=== PATIENT | female | born 1940 | race Caucasian/White ===

== ENCOUNTER 2018-08-09 05:08 | Day surgery (SDC) | payer OTHER, BC ==
[2018-08-05 17:55] VITALS: BMI 21.6
[2018-08-09] MEDS ORDERED: PROPOFOL 20 ML ONE ×2 (10:30)
[2018-08-09] MEDS ORDERED: MIDAZOLAM HCL 2 MG/2 ML SINGLE DOSE VIAL ONE (10:30)
[2018-08-09] MEDS ORDERED: oxyCODONE HCL 5 MG TABLET PO PRN ×2 (10:44→12:27)
[2018-08-09] MEDS ORDERED: ONDANSETRON 4 MG/2 ML VIAL IVPUSH PRN ×2 (10:44→12:27)
[2018-08-09] MEDS ORDERED: LACTATED RINGERS SOLUTION 1,000 ML IV SCH (10:45)
--- NOTE | 2018-08-09 10:54 | HP ---
History & Physical Update - Physical Physical: No Change - Assessment Assessment: No Change - Plan Plan: No Change (H& P reviwed , no cahnges , for hysterocopy)
[2018-08-09] MEDS ORDERED: IBUPROFEN 800 MG/8 ML IJ IVPB PRN (12:27)
[2018-08-09] MEDS ORDERED: IBUPROFEN 600 MG TABLET (FP) PO PRN (12:27)
[2018-08-09] MEDS ORDERED: ELECTROLYTE-148 SOLN 1,000 ML IV SCH (12:30)
[2018-08-09 12:32] VITALS: TEMP 97.3
[2018-08-09 13:40] VITALS: BP 153/71; PULSE 63
--- NOTE | 2018-08-10 10:54 | OP ---
DATE OF OPERATION: 08/09/2018 PREOPERATIVE DIAGNOSIS: Postmenopausal bleeding, rule out endometrial polyp. POSTOPERATIVE DIAGNOSIS: Postmenopausal bleeding, rule out endometrial polyp, submucous fibroid uterus, and atrophic endometrium. SURGEON: Bhavesh Lewis MD ANESTHESIA: General. ESTIMATED BLOOD LOSS: 25 mL. DESCRIPTION OF PROCEDURE: The patient was taken to the operating room, had adequate general anesthesia in dorsal lithotomy position. Examination under anesthesia revealed external genitalia had a vulvectomy. Vagina was normal, no gross lesion. Uterus was normal-sized. Adnexa, no masses were palpable. Then, with a weighted speculum in the vagina, anterior lip of the cervix was grasped with a single-tooth tenaculum. Uterine cavity was sounded to 5 cm. Then, cervix was slightly dilated, and hysteroscope was introduced. Visualization of the endocervical canal appeared to be normal. Endometrium appeared atrophic. There were 2 small submucous myomas seen. Both cornual regions of the uterus were visualized. No other abnormality was found. Endometrium was atrophic, and no other lesion was found. Patient tolerated the procedure well, left the OR in good condition. BHAVESH LEWIS M.D. [id number]
--- NOTE | 2018-08-10 16:44 | PATH ---
Surgical Pathology Report Patient Name: SADAF ROSS [facility]. Rec. #: [id number] /Age/Gender: 1940 (Age: 78) / F Account: [id number] Location: [facility] SUR[facility] Taken: 08/09/2018 Received: 08/09/2018 Reported: 08/10/2018 Physicians: Bhavesh Lewis M.D. Specimen(s) Received ENDOMETRIAL CURETTINGS Clinical History Postmenopausal bleeding, submucous leiomyoma of uterus Final Diagnosis ENDOMETRIAL CURETTINGS, DILATION AND CURETTAGE: FEW STRIPS OF ENDOMETRIAL GLANDS CONSISTENT WITH ATROPHIC ENDOMETRIUM, BENIGN CERVICAL SQUAMOUS MUCOSA, AND SCANT BENIGN ENDOCERVICAL GLANDS, ADMIXED WITH BLOOD AND MUCUS. Electronically Signed Luz [place] M.D. Gross Description Received in formalin labeled "endometrial curettings," is a 0.7 x 0.5 x 0.1 cm aggregate of anton red soft tissue fragments. The formalin is filtered and the specimen is entirely submitted in one cassette. /08/09/2018 [facility]08/09/2018
--- NOTE | 2018-08-16 13:39 | OP ---
DATE OF OPERATION: 08/09/2018 PREOPERATIVE DIAGNOSIS: Postmenopausal bleeding. PROCEDURE: Hysteroscopy, dilation and curettage. SURGEON: Bhavesh Lewis MD ANESTHESIA: General. ESTIMATED BLOOD LOSS: Minimal. FINDING: Two small submucous myomas. OPERATION: Patient was taken to operating room under adequate general anesthesia in dorsal lithotomy position. Examination under anesthesia revealed external genitalia with history of vulvectomy for Paget's disease, no evidence of Paget's. Vagina was atrophic. Cervix was clean, no lesion. Uterus normal size, anteverted. Adnexa, no masses were palpable. Then with a weighted speculum in the vagina, anterior lip of cervix was grasped with single-tooth tenaculum. Cervix was slightly dilated. Hysteroscope was introduced. Visualization of endocervical canal appeared to be normal. Endometrium was atrophic. Both cornual region was identified and tubal ostium was visualized. There were 2 small submucous myomas, one fundal and one in the lower uterine segment, approximately 1 cm each, but no other abnormality was found. Hysteroscope was withdrawn. Cervix was dilated. Endometrium was curetted. A small amount of tissue was obtained. Patient tolerated procedure well, left the OR in good condition. BHAVESH LEWIS M.D. [id number]
== END 2018-08-09 13:49 | disposition home or self-care (01) ==
LOC: JASU-SURG 05:08
PROVIDERS: ATTEND Obstetrics & Gynecology
PROC: 0UDB7ZX Extraction of Endometrium, Via Natural or Artificial Opening, Diagnostic (ICD-10-PCS; principal; 2018-08-09 10:30)
PROC: 0UJD8ZZ Inspection of Uterus and Cervix, Via Natural or Artificial Opening Endoscopic (ICD-10-PCS; 2018-08-09 10:30)
DX: N95.0 Postmenopausal bleeding (principal); D25.0 Submucous leiomyoma of uterus
CPT/HCPCS: 82962; 88305-TC; 94760

== ENCOUNTER 2018-12-07 08:41 | Day surgery (SDC) | payer OTHER, BC | END 2018-12-07 11:55 | disposition home or self-care (01) | LOC: FASU 08:41 ==

== ENCOUNTER → 2019-05-18 | Day surgery (SDC) | payer OTHER, BC ==
--- NOTE | 2019-05-22 10:56 | PATH ---
Surgical Pathology Report Patient Name: SADAF ROSS [facility]. Rec. #: [id number] /Age/Gender: 1940 (Age: 79) / F Account: [id number] Location: [facility] Taken: 05/18/2019 Received: 05/18/2019 Reported: 05/22/2019 Physicians: Ele Rivas M.D. Specimen(s) Received A: LEFT BREAST SPECIMEN - WITH CALCIFICATIONS B: LEFT BREAST SPECIMEN - WITHOUT CALCIFICATIONS Clinical History Nonpalpable lesion Mammographic findings: Microcalcification, suspicious Final Diagnosis A. LEFT BREAST, WITH CALCIFICATION, STEREOTACTIC NEEDLE CORE BIOPSY: SCLEROSED FIBROADENOMA WITH STROMAL CALCIFICATION. B. LEFT BREAST, WITHOUT CALCIFICATION, STEREOTACTIC NEEDLE CORE BIOPSY: SCLEROSED FIBROADENOMA, AND FIBROCYSTIC CHANGES INCLUDING STROMAL FIBROSIS AND DUCTAL DILATATION WITH RARE CALCIFICATION. Electronically Signed Casper Godwin M.D. Gross Description A. Received in formalin labeled "left breast with calcifications," are 5 anton-yellow, cylindrical portions of fibroadipose tissue ranging from 1.0-1.2 cm in length and averaging 0.5 cm in diameter. The specimens are submitted in toto in one cassette. B. Received in formalin labeled "left breast without calcifications," are 9 anton-yellow, cylindrical portions of fibroadipose tissue ranging from 0.6-1.5 cm in length and averaging 0.4 cm in diameter. The specimens are submitted in toto in 2 cassettes. Time to formalin fixation: 5 minutes Total formalin fixation time: Approximately 28 hours. 05/19/2019 [facility]05/19/2019
== END | disposition home or self-care (01) ==
LOC: FMAMMOTONE 12:54
PROVIDERS: ATTEND Surgery Surgical Oncology
PROC: 0HBU3ZX Excision of Left Breast, Percutaneous Approach, Diagnostic (ICD-10-PCS; principal; 2019-05-18)
DX: D24.2 Benign neoplasm of left breast (principal); N60.22 Fibroadenosis of left breast; N60.32 Fibrosclerosis of left breast; N64.89 Other specified disorders of breast; N63.20 Unspecified lump in the left breast, unspecified quadrant
CPT/HCPCS: 19081; 76098-TC-FY; 87899; 88305-TC; A4648

== ENCOUNTER 2019-05-31 08:07 | Day surgery (SDC) | payer OTHER, BC ==
[2019-05-25 10:44] VITALS: BMI 22.4
[2019-05-31] MEDS: PHENYLEPHRINE 2.5% OPHTH SOLN 15 ML BOTTLE ONE ×2 (08:50→08:55)
[2019-05-31] MEDS: CYCLOPENTOLATE 2% OPHTH SOLN 2 ML BOTTLE ONE ×3 (08:50→09:00)
[2019-05-31] MEDS: TROPICAMIDE 1% OPHTH SOLN 15 ML BOTTLE ONE ×3 (08:50→09:00)
[2019-05-31] MEDS: CIPROFLOXACIN 0.3% EYE DROPS 5 ML BOTTLE ONE ×3 (08:50→09:00)
[2019-05-31] MEDS ORDERED: PHENYLEPHRINE 2.5% OPHTH SOLN 15 ML BOTTLE OS ONE (09:00)
[2019-05-31] MEDS ORDERED: NEO/POLYMYX B SULF/DEXAMETH OPHTHALMIC 5ML BOTTLE ONE (09:56)
[2019-05-31] MEDS ORDERED: BSS (NA/CA/MG/K) BALANCED SALT SOLUTION OPHTH SOLN 15 ML BOTTLE ONE (09:56)
[2019-05-31] MEDS ORDERED: CARBACHOL 0.01% INTRA-OCULAR 1.5 ML VIAL ONE (09:56)
[2019-05-31] MEDS ORDERED: MIDAZOLAM HCL 2 MG/2 ML SINGLE DOSE VIAL ONE (10:10)
[2019-05-31 10:33] VITALS: TEMP 98.1
[2019-05-31 10:56] VITALS: BP 131/76; PULSE 76
[2019-05-31] MEDS ORDERED: ONDANSETRON 4 MG/2 ML VIAL IVPUSH PRN (14:40)
[2019-05-31] MEDS ORDERED: ACETAMINOPHEN 325 MG TABLET (FP) PO PRN (14:40)
[2019-05-31] MEDS ORDERED: LACTATED RINGERS SOLUTION 1,000 ML IV SCH (14:45)
--- NOTE | 2019-06-01 10:57 | OP ---
DATE OF OPERATION: 05/31/2019 OPERATIVE PROCEDURE: Lens Phacoemulsification with Posterior Chamber Intraocular Lens Placement Left Eye PREOPERATIVE DIAGNOSIS: Visually Significant Cataract of Left Eye POSTOPERATIVE DIAGNOSIS: Visually Significant Cataract of Left Eye SURGEON: Erlin Villagomez M.D. ANESTHESIA: MAC PROCEDURE: The patient was brought to the operating room and placed under monitored anesthesia care by Anesthesia. A drop of Tetracaine was then placed over the left eye. The patient was then prepped and draped in the usual sterile manner. A speculum was then placed over the left eye. The eye was then well irrigated with copious amounts of BSS (balanced salt solution). The operating microscope was then moved into position. A paracentesis was performed using a 15 degree blade. At this point 0.5 mL of 1% preservative-free lidocaine was injected into the anterior chamber. Amvisc plus was then injected into the anterior chamber. A clear corneal incision was then formed using a 2.2 mm keratome. A capsulorrhexis was then performed in a continuous circular fashion beginning with a cystotome, completed with an Utratas forceps. Hydrodissection was then performed using BSS on a cannula. The phaco probe was then introduced through the corneal wound and the cataract was removed using the phaco chop technique. Approximately 3 seconds of absolute phaco time was used. The remaining cortex was then removed using irrigation and aspiration with an I/A probe. The capsule was then filled with regular Amvisc and the capsule was noted to be intact. A previously selected foldable posterior chamber intraocular lens was then injected into the capsule through the corneal wound using a lens injector. It was then dialed into position using a Sinskey hook. The Amvisc was then removed using irrigation and aspiration. Miostat was then injected through the paracentesis to constrict the pupil. The paracentesis and corneal wound were then hydrated and noted to be water tight. A drop of Maxitrol was then placed over the eye. The speculum was removed and clear shield was taped over the eye. The patient tolerated the procedure well and there were no surgical complications. The patient was asked to follow up in my office the next day. ERLIN VILLAGOMEZ M.D. MARY [id number]
== END 2019-05-31 11:10 | disposition home or self-care (01) ==
LOC: FASU 08:07
PROVIDERS: ATTEND Ophthalmology
PROC: 08RK3JZ Replacement of Left Lens with Synthetic Substitute, Percutaneous Approach (ICD-10-PCS; principal; 2019-05-31 10:13)
DX: H26.8 Other specified cataract (principal)
CPT/HCPCS: 82962

== ENCOUNTER 2019-07-05 10:12 | Day surgery (SDC) | payer OTHER, BC ==
[2019-06-28 12:44] VITALS: BMI 22.4
[2019-07-05] MEDS: CIPROFLOXACIN 0.3% EYE DROPS 5 ML BOTTLE ONE ×3 (11:30→11:40)
[2019-07-05] MEDS: TROPICAMIDE 1% OPHTH SOLN 15 ML BOTTLE ONE ×3 (11:30→11:40)
[2019-07-05] MEDS: CYCLOPENTOLATE 2% OPHTH SOLN 2 ML BOTTLE ONE ×3 (11:30→11:40)
[2019-07-05] MEDS: PHENYLEPHRINE 2.5% OPHTH SOLN 15 ML BOTTLE ONE ×3 (11:30→11:40)
[2019-07-05 11:35] VITALS: PULSE 76
[2019-07-05] MEDS ORDERED: LIDOCAINE 1% P/F 10 MG/ML VIAL ONE (11:47)
[2019-07-05] MEDS ORDERED: BSS (NA/CA/MG/K) BALANCED SALT SOLUTION OPHTH SOLN 15 ML BOTTLE ONE (11:47)
[2019-07-05] MEDS ORDERED: TETRACAINE 0.5% OPHTH SOLN 2 ML BOTTLE ONE (11:47)
[2019-07-05] MEDS ORDERED: CARBACHOL 0.01% INTRA-OCULAR 1.5 ML VIAL ONE (11:48)
[2019-07-05] MEDS ORDERED: NEO/POLYMYX B SULF/DEXAMETH OPHTHALMIC 5ML BOTTLE ONE (11:48)
[2019-07-05] MEDS ORDERED: MIDAZOLAM HCL 2 MG/2 ML SINGLE DOSE VIAL ONE (12:02)
[2019-07-05] MEDS ORDERED: ONDANSETRON 4 MG/2 ML VIAL IVPUSH PRN (12:21)
[2019-07-05] MEDS ORDERED: ACETAMINOPHEN 325 MG TABLET (FP) PO PRN (12:21)
[2019-07-05] MEDS ORDERED: LACTATED RINGERS SOLUTION 1,000 ML IV SCH (12:30)
[2019-07-05 12:39] VITALS: BP 137/76
[2019-07-05 12:54] VITALS: TEMP 98
--- NOTE | 2019-07-05 17:57 | OP ---
DATE OF OPERATION: 07/05/2019 OPERATIVE PROCEDURE: Lysis of posterior iris lens synechia and lens phacoemulsification with posterior chamber intraocular lens placement, right eye. 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 SURGEON: Erlin Villagomez M.D. ANESTHESIA: MAC PROCEDURE: The patient was brought to the operating room and placed under monitored anesthesia care by Anesthesia. A drop of tetracaine was then placed over the right eye. The patient was then prepped and draped in the usual sterile manner. A speculum was then placed over the right eye. The eye was then well irrigated with copious amounts of BSS (balanced salt solution). The operating microscope was then moved into position. A paracentesis was performed using a 15-degree blade. At this point 0.5 mL of 1% preservative-free lidocaine was injected into the anterior chamber. Amvisc Plus was then injected into the anterior chamber. A clear corneal incision was then formed using a 2.2 mm keratome. A cyclodialysis spatula was then used to break the posterior synechia. Two [employer] iris hooks were then used to stretch the iris. More Amvisc Plus was then injected into the anterior chamber. A capsulorrhexis was then performed in a continuous circular fashion beginning with a cystotome and completed with Utrata forceps. Hydrodissection was then performed using BSS on a cannula. The phaco probe was then introduced through the corneal wound and the cataract was removed using the phaco chop technique. Approximately 3 seconds of absolute phaco time was used. The remaining cortex was then removed using irrigation and aspiration with an I/A probe. The capsule was then filled with regular Amvisc and the capsule was noted to be intact. A previously selected foldable posterior chamber intraocular lens was then injected into the capsule through the corneal wound using a lens injector. It was then dialed into position using a Sinskey hook. The Amvisc was then removed using irrigation and aspiration. Miostat was then injected through the paracentesis to constrict the pupil. The paracentesis and corneal wound were then hydrated and noted to be watertight. A drop of Maxitrol was then placed over the eye. The speculum was removed and clear shield was taped over the eye. The patient tolerated the procedure well and there were no surgical complications. The patient was asked to follow up in my office the next day. ERLIN VILLAGOMEZ M.D. [id number]
== END 2019-07-05 12:58 | disposition home or self-care (01) ==
LOC: FASU 10:12
PROVIDERS: ATTEND Ophthalmology
PROC: 08RJ3JZ Replacement of Right Lens with Synthetic Substitute, Percutaneous Approach (ICD-10-PCS; principal; 2019-07-05 12:05)
DX: H26.8 Other specified cataract (principal); H21.541 Posterior synechiae (iris), right eye
CPT/HCPCS: 82962